=== PATIENT | female | born 1945 | race Caucasian/White ===

== ENCOUNTER 2021-05-24 10:00 | Inpatient (IN) | payer OTHER ==
[~2021-05-24] VITALS: Ht 152.4 cm; Wt 92.7 kg
[2021-05-24] MEDS ORDERED: SIMV-49 PO (10:25)
[2021-05-24] MEDS ORDERED: ASPI81TA31 PO (10:25)
[2021-05-24] MEDS ORDERED: FURO40TA5 PO (10:25)
[2021-05-24] MEDS ORDERED: [UNRECOGNIZED DRUG - OTHER] IH (10:25)
[2021-05-24] MEDS ORDERED: POTA10CA43 PO (10:25)
[2021-05-24] MEDS ORDERED: METO25TA6 PO (10:25)
[2021-05-24] MEDS ORDERED: APIX5TAB4 PO (10:25)
--- NOTE | 2021-05-24 10:27 | NUR ---
Dr [email or web address], medical screening exam in progress
[2021-05-24 10:43] LABS: HEMATOCRIT 41.3 % (31.2-41.9); MEAN CORPUSCULAR HEMOGLOBIN 29.6 uug (24.7-32.8); MEAN CORPUSCULAR VOLUME 91.4 fL (75.5-95.3); PLATELET COUNT (AUTO) 331 K/uL (179-408)
[2021-05-24 10:45] LABS: CREATININE 0.7 mg/dL (0.6-1.3); POTASSIUM 3.3 mmol/L (3.5-5.1)
[2021-05-24 10:57] LABS: BILIRUBIN,DIRECT 0.5 mg/dL (0.0-0.2); TOTAL PROTEIN, SERUM 6.7 g/dL (6.4-8.2)
--- NOTE | 2021-05-24 12:08 | NUR ---
ER registration/admitting staff [facility] notified by Dr Lewis himself re: plan to admit
--- NOTE | 2021-05-24 12:26 | NUR ---
Patient ambulated to the bathroom with our hospital-walker with slow gait. Patient is calm, denies pains or palpitations@this time.
--- NOTE | 2021-05-24 13:13 | NUR ---
"OK to admit to our hospital."per ER registration/admitting staff
[2021-05-24 14:30] VITALS: BP 161/72
[2021-05-24] MEDS ORDERED: MAGNESIUM HYDROXIDE 30 ML LIQUID UDC PO PRN (16:15)
[2021-05-24] MEDS ORDERED: ONDANSETRON 4 MG/2 ML VIAL IV PRN (16:15)
[2021-05-24] MEDS ORDERED: TEMAZEPAM 15 MG CAPSULE PO PRN (16:15)
[2021-05-24] MEDS: APIXABAN 5 MG TABLET PO SCH (16:52)
[2021-05-24] MEDS: MORPHINE SULFATE 2 MG/1 ML DISP.SYRIN IV PRN ×2 (16:57→22:37)
[2021-05-24] MEDS ORDERED: METOPROLOL TARTRATE 25 MG TABLET PO SCH (17:00)
[2021-05-24] MEDS ORDERED: Medication Not On Formulary EA (Apixaban (Eliquis) 5 MG) PO SCH (17:00)
[2021-05-24] MEDS: ACETAMINOPHEN 325 MG TABLET PO PRN (17:42)
--- NOTE | 2021-05-24 18:15 | NUR ---
Received patient report from charge nurse, Royal MANLEY. Patient arrived on unit via gurney with no initial signs of distress or discomfort. Patient has a LFA 20G access point. Patient is alert, oriented x4, and on tele with A-Fib with Rare PVC's with a HR between the 80-90's. Patient denies any chest pain. Patient has pain on leg where doppler was performed. Pain medication administered. Patient resting in bed comfortably with no signs of distress or discomfort. Bed left in lowest position with call light within reach. Will endorse info to PM nurse
--- NOTE | 2021-05-24 20:12 | NUR ---
Patient AALOx4 .Denies chest pain .On Ra .No s/s of distress noted.A-Fib on Tele monitor HR between the 80-90's. Bilateral lower legs edema. Elevated with pillow.Iv on left FA patent and intact.Due meds given as ordered. Call light with in reach. Will continue to monitor.
[2021-05-24 20:23] VITALS: BP 149/64
[2021-05-24] MEDS: SIMVASTATIN 40 MG TABLET PO SCH (20:34)
[2021-05-24] MEDS: DOCUSATE SODIUM 100 MG CAPSULE PO SCH (20:34)
[2021-05-24] MEDS: METOPROLOL TARTRATE 25 MG TABLET PO SCH (20:36)
[2021-05-24 22:01] LABS: *BILIRUBIN,URIN 2+ (NEGATIVE); *BLOOD, URINE NEGATIVE (NEGATIVE); *CLARITY,URINE CLEAR (CLEAR); *COLOR,URINE AMBER (YELLOW); *KETONES,URINE 2+ (NEGATIVE); LEUKOCYTE ESTERASE ,URINE NEGATIVE (NEGATIVE); NITRITE, URINE NEGATIVE (NEGATIVE); UGLUCOSE NEGATIVE (NEGATIVE)
[2021-05-24 22:11] LABS: BACTERIA,URINE NONE SEEN /HPF (NONE SEEN); RBC,URINE 0-3 /HPF (0-3); SQUAMOUS EPITHELIAL CELL,UR FEW /HPF (NONE SEEN); WBC,URINE 0-3 /HPF (0-3)
[2021-05-25] VITALS: BP 123/49
[2021-05-25 04:00] VITALS: BP 151/62
[2021-05-25] MEDS: PANTOPRAZOLE SODIUM 40 MG TABLET.DR PO SCH (06:15)
[2021-05-25 06:47] LABS: HEMATOCRIT 40.8 % (31.2-41.9); MEAN CORPUSCULAR HEMOGLOBIN 29.6 uug (24.7-32.8); MEAN CORPUSCULAR VOLUME 92.1 fL (75.5-95.3); PLATELET COUNT (AUTO) 357 K/uL (179-408)
[2021-05-25] MEDS: MORPHINE SULFATE 2 MG/1 ML DISP.SYRIN IV PRN ×3 (07:36→21:15)
[2021-05-25 08:01] LABS: BILIRUBIN,TOTAL 1.3 mg/dL (0.2-1.0); CREATININE 0.7 mg/dL (0.6-1.3); MAGNESIUM 1.9 mg/dL (1.8-2.4); PHOSPHOROUS 3.1 mg/dL (2.5-4.9); POTASSIUM 3.6 mmol/L (3.5-5.1); TOTAL PROTEIN, SERUM 6.7 g/dL (6.4-8.2)
[2021-05-25] MEDS: POTASSIUM CHLORIDE 20 MEQ TAB.PRT.SR PO SCH (08:21)
[2021-05-25 08:24] LABS: THYROID STIMULATING HORMONE 0.796 mIU/mL (0.358-3.740)
[2021-05-25] MEDS: FUROSEMIDE 40 MG TABLET PO SCH (08:27)
[2021-05-25] MEDS: METOPROLOL TARTRATE 25 MG TABLET PO SCH ×2 (08:27→20:58)
[2021-05-25] MEDS: APIXABAN 5 MG TABLET PO SCH ×2 (08:28→16:55)
[2021-05-25] MEDS: AMOXICILLIN-CLAVUL 875-125MG TABLET PO SCH ×2 (09:12→20:57)
--- NOTE | 2021-05-25 10:00 | NUR ---
SEEN BY DR MAHMOOD FOR CARDIO FOLLOW-UP. SEE NOTES
[2021-05-25] MEDS: CLOTRIMAZOLE 1% CREAM 30 GM TUBE TOP SCH ×2 (11:08→16:58)
[2021-05-25 12:00] VITALS: BP 135/65
[2021-05-25] MEDS ORDERED: IOHEXOL 300MG/ML 100 ML INFUS..BTL ONE (15:55)
[2021-05-25] MEDS ORDERED: IV NORMAL SALINE 250 ML IV ONE (15:55)
[2021-05-25] MEDS ORDERED: SWABABLE VALVE TRANSFER SET EA MC ONE (15:55)
[2021-05-25 16:00] VITALS: BP 122/49
--- NOTE | 2021-05-25 17:11 | NUR ---
patient picked up by radiologist for facial ct with contrast.
[2021-05-25 20:00] VITALS: BP 111/50
[2021-05-25] MEDS: DOCUSATE SODIUM 100 MG CAPSULE PO SCH (21:00)
[2021-05-25] MEDS: NYSTATIN POWDER 15 GM BOTTLE TOP SCH (21:01)
[2021-05-25] MEDS: SIMVASTATIN 40 MG TABLET PO SCH (21:03)
[2021-05-26] VITALS: BP 117/43
[2021-05-26 04:14] VITALS: BP 137/62
[2021-05-26] MEDS: PANTOPRAZOLE SODIUM 40 MG TABLET.DR PO SCH (06:04)
[2021-05-26] MEDS: ACETAMINOPHEN 325 MG TABLET PO PRN (06:04)
[2021-05-26] MEDS: METOPROLOL TARTRATE 25 MG TABLET PO SCH ×2 (08:17→20:23)
[2021-05-26] MEDS: POTASSIUM CHLORIDE 20 MEQ TAB.PRT.SR PO SCH (08:17)
[2021-05-26] MEDS: ALLOPURINOL 300 MG TABLET PO SCH (08:17)
[2021-05-26] MEDS: FUROSEMIDE 40 MG TABLET PO SCH (08:17)
[2021-05-26] MEDS: APIXABAN 5 MG TABLET PO SCH ×2 (08:17→16:17)
[2021-05-26] MEDS: AMOXICILLIN-CLAVUL 875-125MG TABLET PO SCH ×2 (08:18→20:24)
[2021-05-26] MEDS: NYSTATIN POWDER 15 GM BOTTLE TOP SCH ×2 (08:28→20:37)
[2021-05-26] MEDS: CLOTRIMAZOLE 1% CREAM 30 GM TUBE TOP SCH ×2 (08:28→16:15)
[2021-05-26 12:00] VITALS: BP 119/49
[2021-05-26 16:16] VITALS: BP 120/54
[2021-05-26] MEDS: MORPHINE SULFATE 2 MG/1 ML DISP.SYRIN IV PRN (18:00)
--- NOTE | 2021-05-26 19:30 | NUR ---
AAO x4, able to make needs know. Denies any dizziness or chest pain. On RA, no SOB. On Telemetry, controlled AFIb at 95 bpm. Needs assessed and attended. Continent of bowel and bladder. Safety measures initiated, call light within reach.
[2021-05-26 20:00] VITALS: BP 133/61
[2021-05-26] MEDS: DOCUSATE SODIUM 100 MG CAPSULE PO SCH (20:21)
[2021-05-26] MEDS: SIMVASTATIN 40 MG TABLET PO SCH (20:21)
[2021-05-27 00:54] VITALS: BP 156/63
[2021-05-27] MEDS: MORPHINE SULFATE 2 MG/1 ML DISP.SYRIN IV PRN (01:40)
[2021-05-27 04:00] VITALS: BP 146/64
[2021-05-27] MEDS: ACETAMINOPHEN 325 MG TABLET PO PRN ×2 (05:07→14:09)
[2021-05-27] MEDS: PANTOPRAZOLE SODIUM 40 MG TABLET.DR PO SCH (06:05)
--- NOTE | 2021-05-27 06:19 | NUR ---
Patient noted with headache this am, Tylenol PRN provided. 02 sats 86-88% on RA around midnight, started on 2L 02 via NC and 02 sats 91- 94%. patient denies any SOB or coughing. Edema still noted to BLE. Slept a few hours this shift, Restoril effective only for a few hours. All needs attended, call light within reach.
[2021-05-27 06:53] LABS: HEMATOCRIT 35.3 % (31.2-41.9); MEAN CORPUSCULAR HEMOGLOBIN 29.5 uug (24.7-32.8); MEAN CORPUSCULAR VOLUME 90.5 fL (75.5-95.3); PLATELET COUNT (AUTO) 264 K/uL (179-408)
[2021-05-27 07:18] LABS: CREATININE 0.8 mg/dL (0.6-1.3); MAGNESIUM 1.6 mg/dL (1.8-2.4); PHOSPHOROUS 3.1 mg/dL (2.5-4.9)
[2021-05-27] MEDS: METOPROLOL TARTRATE 25 MG TABLET PO SCH (08:09)
[2021-05-27] MEDS: POTASSIUM CHLORIDE 20 MEQ TAB.PRT.SR PO SCH (08:09)
[2021-05-27] MEDS: FUROSEMIDE 40 MG TABLET PO SCH (08:09)
[2021-05-27] MEDS: ALLOPURINOL 300 MG TABLET PO SCH (08:09)
[2021-05-27] MEDS: APIXABAN 5 MG TABLET PO SCH (08:10)
[2021-05-27] MEDS: AMOXICILLIN-CLAVUL 875-125MG TABLET PO SCH (08:10)
[2021-05-27 08:21] LABS: POTASSIUM 2.3 mmol/L (3.5-5.1)
[2021-05-27] MEDS: CLOTRIMAZOLE 1% CREAM 30 GM TUBE TOP SCH (08:28)
[2021-05-27] MEDS: NYSTATIN POWDER 15 GM BOTTLE TOP SCH (08:28)
[2021-05-27] MEDS ORDERED: POTASSIUM CHLORIDE 20 MEQ POWDER PACKET GT ONE (08:30)
[2021-05-27] MEDS: MAGNESIUM SULFATE/D5W 100 ML IV SCH ×2 (08:43→09:35)
[2021-05-27] MEDS: POTASSIUM CHLORIDE 50 ML IV SCH ×4 (08:43→11:51)
[2021-05-27 11:50] VITALS: BP 105/38
--- NOTE | 2021-05-27 12:21 | NUR ---
PT HAVE V TACK 11 SECONDS .UPON CHECKING PT IS ASYMPTOMATIC AND HER BP ID 112/45 HR 112 MADE AWARE
[2021-05-27 13:40] LABS: CREATININE 0.9 mg/dL (0.6-1.3); MAGNESIUM 2.5 mg/dL (1.8-2.4); POTASSIUM 3.7 mmol/L (3.5-5.1)
[2021-05-27 16:00] VITALS: BP 120/43
[2021-05-27] MEDS ORDERED: ALLO300T2 PO (16:03)
[2021-05-27] MEDS ORDERED: AMOX1TAB16 PO (16:03)
[2021-05-27] MEDS ORDERED: PANT40TA49 PO (16:03)
--- NOTE | 2021-05-27 16:59 | NUR ---
dc orders received noted and carried out,dc heplock per md orders .dc instruction and education given to the pt .pt said she will follow up with her pcp .pt left the facility via private car in stable condition
== END 2021-05-27 17:00 | disposition home or self-care (01) | DRG 308 ==
LOC: ER 10:00 → TELE3 13:45
PROVIDERS: ADMIT Internal Medicine; ATTEND Internal Medicine
DX: I48.0 Paroxysmal atrial fibrillation (principal); I50.23 Acute on chronic systolic (congestive) heart failure; Z68.41 Body mass index [BMI] 40.0-44.9, adult; D68.59 Other primary thrombophilia; Z79.01 Long term (current) use of anticoagulants; E66.01 Morbid (severe) obesity due to excess calories; Z74.09 Other reduced mobility; I11.0 Hypertensive heart disease with heart failure; I48.20 Chronic atrial fibrillation, unspecified; D72.829 Elevated white blood cell count, unspecified; E78.5 Hyperlipidemia, unspecified; E83.42 Hypomagnesemia; E87.6 Hypokalemia; Z79.82 Long term (current) use of aspirin; I27.20 Pulmonary hypertension, unspecified; Z87.891 Personal history of nicotine dependence; Z96.653 Presence of artificial knee joint, bilateral; Z96.612 Presence of left artificial shoulder joint; I67.2 Cerebral atherosclerosis; B36.8 Other specified superficial mycoses; K04.5 Chronic apical periodontitis; I07.1 Rheumatic tricuspid insufficiency; M19.90 Unspecified osteoarthritis, unspecified site; K04.6 Periapical abscess with sinus; M1A.9XX1 Chronic gout, unspecified, with tophus (tophi); Z96.642 Presence of left artificial hip joint; Q21.1 Atrial septal defect
CPT/HCPCS: 36415; 70030-TC; 70486; 70487; 71045; 82378; 83605; 83735; 84100; 84443; 84550; 85025; 85730; 87040; 87086; 93005; 93307; 97161; A4663; G0378; J2270; J3475; J3480; J7050; Q9967